=== PATIENT | female | born 1940 | race Caucasian/White ===

== ENCOUNTER 2021-07-07 06:19 | Observation (INO) | payer MEDICARE ==
[2021-06-30 13:52] LABS: BASOPHILS % (AUTO) 0.8 % (0.0-5.0); EOSINOPHILS % (AUTO) 4.4 % (0.0-8.0); MEAN CORPUSCULAR HEMOGLOBIN 29.7 pg (27.0-33.0); MEAN CORPUSCULAR HGB CONC 32.8 g/dL (32.0-36.0); MEAN CORPUSCULAR VOLUME 90.5 fL (79-99); MONOCYTES % (AUTO) 9.9 % (3.0-13.0); NEUTROPHILS % (AUTO) 54.6 % (40.0-77.0); PLATELET COUNT (AUTO) 225 K/uL (130-400); RED BLOOD CELL COUNT(AUTO) 4.31 MIL/uL (4.00-5.50); RED CELL DISTRIBUTION WIDTH 12.9 % (11.0-15.5); WHITE BLOOD COUNT (AUTO) 6.5 K/uL (4.8-10.8)
[2021-06-30 14:00] LABS: CREATININE 0.9 mg/dL (0.5-1.5); POTASSIUM 4.6 mmol/L (3.5-5.1); PROTHROMBIN TIME 10.9 SEC (9.6-11.6)
[2021-06-30 14:01] LABS: PARTIAL THROMBOPLASTIN TIME 27.4 SEC (26.3-35.5)
[2021-07-06 10:01] VITALS: BP 137/65
[2021-07-07] VITALS (27 sets, daily range): BP systolic 98–129; BP diastolic 39–64
[~2021-07-07] VITALS: Ht 165.1 cm; Wt 71.4 kg
[2021-07-07] MEDS: CEFAZOLIN SODIUM 2 GM VIAL IV SCH ×3 (05:00→18:11)
[~2021-07-07 06:19] MED LIST: ALPR0.255 PO; CITA-107 PO; MULT-1367 PO; MV-M1TAB20 PO; NEBI2.5T5 PO; PANT40TA54 PO; ROPIVICAINE 250MG+KETOROLAC 15MG+EPINEPHRINE 0.3+CLONIDINE 80 IV PRN; ROSU40TA21 PO
[2021-07-07] MEDS ORDERED: TRANEXAMIC ACID 1000MG/10ML ONE (07:04)
[2021-07-07] MEDS ORDERED: LACTATED RINGERS 1000ML 1,000 ML IV ONE (07:05)
[2021-07-07] MEDS ORDERED: CEFAZOLIN SODIUM 1 GM VIAL ONE (07:05)
[2021-07-07] MEDS ORDERED: LIDOCAINE PF 100MG/5ML (2%) SYRINGE 5ML ONE (07:22)
[2021-07-07] MEDS ORDERED: PROPOFOL 10 MG/ML 20ML VIAL IV ONE (07:23)
[2021-07-07] MEDS ORDERED: ONDANSETRON 4MG INJ ONE (07:23)
[2021-07-07] MEDS ORDERED: FENTANYL CITRATE PF 50 MCG/1 ML 2ML VIAL ONE (07:24)
[2021-07-07] MEDS ORDERED: ROCURONIUM 10MG/1ML SYR 10 MG/ML ML ONE ×2 (07:24→09:14)
[2021-07-07] MEDS ORDERED: MIDAZOLAM HCL 1 MG/ML 2ML VIAL ONE (07:25)
[2021-07-07] MEDS ORDERED: ROPIVACAINE 0.5% 5MG/ML 30ML IJ ONE (07:43)
[2021-07-07] MEDS ORDERED: DEXAMETHASONE SOD PHOSPHATE 10MG/ML 1ML VIAL ONE (07:44)
[2021-07-07] MEDS ORDERED: GLYCOPYRROLATE 1 MG/5 ML SYRINGE ONE (10:34)
[2021-07-07] MEDS ORDERED: NEOSTIGMINE 5MG/5ML SYR IV ONE (10:35)
[2021-07-07] MEDS ORDERED: 0.9%NACL 1000ML 1,000 ML IV SCH (11:00)
[2021-07-07] MEDS ORDERED: HYDROCODONE/ACETAMINOPHEN 5/325 MG TAB PO PRN (11:00)
[2021-07-07] MEDS ORDERED: HYDROCODONE/ACETAMINOPHEN 10/325 MG TAB PO PRN (11:00)
[2021-07-07] MEDS ORDERED: MORPHINE 4 MG SYG IVP PRN (11:00)
[2021-07-07] MEDS ORDERED: ONDANSETRON 4MG INJ IVP PRN (11:00)
[2021-07-07] MEDS: ACETAMINOPHEN 500 MG TABLET PO SCH ×2 (11:00→18:37)
[2021-07-07] MEDS: TRAMADOL HCL 50 MG TABLET PO SCH ×3 (12:00→23:30)
[2021-07-07] MEDS: CEFAZOLIN SODIUM 1 GM VIAL IVP SCH ×2 (16:58→23:40)
[2021-07-07] MEDS: ALPRAZOLAM 0.25 MG TABLET PO SCH (19:44)
[2021-07-07] MEDS: FAMOTIDINE 20MG TAB PO SCH (19:44)
[2021-07-07] MEDS: ASPIRIN 81 MG EC TAB PO SCH (19:44)
[2021-07-07] MEDS ORDERED: GABA-529 PO (22:42)
[2021-07-08] MEDS: ACETAMINOPHEN 500 MG TABLET PO SCH ×3 (03:02→17:23)
[2021-07-08 03:46] LABS: HEMATOCRIT 31.2 % (36-48); MEAN CORPUSCULAR HEMOGLOBIN 29.5 pg (27.0-33.0); MEAN CORPUSCULAR VOLUME 89.4 fL (79-99); RED BLOOD CELL COUNT(AUTO) 3.49 MIL/uL (4.00-5.50); RED CELL DISTRIBUTION WIDTH 12.7 % (11.0-15.5); WHITE BLOOD COUNT (AUTO) 10.3 K/uL (4.8-10.8)
[2021-07-08 04:01] LABS: CREATININE 0.9 mg/dL (0.5-1.5); POTASSIUM 4.1 mmol/L (3.5-5.1)
[2021-07-08 05:06] VITALS: BP 102/47
[2021-07-08] MEDS: TRAMADOL HCL 50 MG TABLET PO SCH ×3 (05:33→18:46)
[2021-07-08 07:47] VITALS: BP 102/57
[2021-07-08] MEDS ORDERED: BYSTOLIC 2.5 MG PO SCH (09:00)
[2021-07-08] MEDS ORDERED: MULTIVITAMIN TABLET PO SCH (09:00)
[2021-07-08] MEDS ORDERED: PANTOPRAZOLE 40 MG TAB DR PO SCH (09:00)
[2021-07-08] MEDS ORDERED: CITALOPRAM 20 MG TABLET PO SCH (09:00)
[2021-07-08] MEDS ORDERED: POLYETHYLENE GLYCOL 3350 17 GM POWD.PACK PO SCH (09:00)
[2021-07-08] MEDS: FAMOTIDINE 20MG TAB PO SCH (09:13)
[2021-07-08] MEDS: ALPRAZOLAM 0.25 MG TABLET PO SCH (09:13)
[2021-07-08] MEDS: ASPIRIN 81 MG EC TAB PO SCH (09:13)
[2021-07-08 11:12] VITALS: BP 115/53
[2021-07-08 15:49] VITALS: BP 135/46
[2021-07-10] MEDS ORDERED: BISACODYL 10 MG SUPP.RECT RC PRN (11:00)
== END 2021-07-08 19:10 | disposition home health service (06) ==
LOC: DAH 06:19 → DAHIP 06:20 → 4AH 12:15
PROVIDERS: ADMIT Orthopaedic Surgery; ATTEND Orthopaedic Surgery
DX: M17.12 Unilateral primary osteoarthritis, left knee (principal); Z20.822 Contact with and (suspected) exposure to COVID-19; M25.562 Pain in left knee; Z79.82 Long term (current) use of aspirin; Z79.899 Other long term (current) drug therapy; Z98.890 Other specified postprocedural states
CPT/HCPCS: 27447; 36415 ×2; 64447; 64450; 76942; 80048 ×2; 85025; 85027; 85610; 85730; 87635; 87641; 93005; 96374; 96376; 97039 ×3; 97116 ×2; 97161; 97530 ×2; A4215; A4221; A4222; A4223; A4344; A4649 ×5; A4663; A4930; A5120; A6223; A6260; C1776; C9803; G0378 ×30; J0171; J0690 ×3; J0735; J1100; J1885; J2001; J2250; J2405; J2704; J2710; J2795 ×2; J3010; J3490 ×2; J7030; J7120 ×2

== ENCOUNTER 2021-08-11 06:17 | Observation (INO) | payer MEDICARE ==
[2021-08-07 12:45] LABS: BASOPHILS % (AUTO) 0.7 % (0.0-5.0); HEMATOCRIT 37.3 % (36-48); LYMPHOCYTES % (AUTO) 27.7 % (21.0-51.0); MEAN CORPUSCULAR HEMOGLOBIN 29.6 pg (27.0-33.0); MEAN CORPUSCULAR HGB CONC 32.7 g/dL (32.0-36.0); MEAN CORPUSCULAR VOLUME 90.5 fL (79-99); MONOCYTES % (AUTO) 10.2 % (3.0-13.0); PLATELET COUNT (AUTO) 286 K/uL (130-400); RED BLOOD CELL COUNT(AUTO) 4.12 MIL/uL (4.00-5.50); WHITE BLOOD COUNT (AUTO) 7.3 K/uL (4.8-10.8)
[2021-08-07 12:59] LABS: PROTHROMBIN TIME 10.9 SEC (9.6-11.6)
[2021-08-07 13:00] LABS: PARTIAL THROMBOPLASTIN TIME 28.4 SEC (26.3-35.5)
[2021-08-07 13:05] LABS: CREATININE 0.8 mg/dL (0.5-1.5); POTASSIUM 4.4 mmol/L (3.5-5.1)
[2021-08-10 09:59] VITALS: BP 149/74
[2021-08-11] VITALS (22 sets, daily range): BP systolic 116–158; BP diastolic 52–88
[~2021-08-11] VITALS: Ht 165.1 cm; Wt 70.4 kg
[2021-08-11] MEDS: CEFAZOLIN SODIUM 1 GM VIAL IVP SCH ×4 (06:00→20:56)
[~2021-08-11 06:17] MED LIST changes: +AEC81 PO; -ALPR0.255 PO; +ALPR0.5T8 PO; +DICY20TA3 PO; +GABA-529 PO; +LACTATED RINGERS 1000ML 1,000 ML IV SCH; +MELO-106 PO; -MULT-1367 PO; -MV-M1TAB20 PO; +NITR0.4T50 SL; +OMEP20TA2 PO; -ROPIVICAINE 250MG+KETOROLAC 15MG+EPINEPHRINE 0.3+CLONIDINE 80 IV PRN
[2021-08-11] MEDS ORDERED: ACET-2041 PO (07:18)
[2021-08-11] MEDS ORDERED: TRANEXAMIC ACID 1000MG/10ML ONE (07:35)
[2021-08-11] MEDS ORDERED: LIDOCAINE PF 100MG/5ML (2%) SYRINGE 5ML ONE (07:36)
[2021-08-11] MEDS ORDERED: ROPIVACAINE 0.5% 5MG/ML 30ML IJ ONE ×2 (07:36→07:41)
[2021-08-11] MEDS ORDERED: MIDAZOLAM HCL 1 MG/ML 2ML VIAL ONE (07:37)
[2021-08-11] MEDS ORDERED: DEXAMETHASONE SOD PHOSPHATE 10MG/ML 1ML VIAL ONE (07:37)
[2021-08-11] MEDS ORDERED: PROPOFOL 1000 MG/100 ML 100 ML IV ONE (07:40)
[2021-08-11] MEDS ORDERED: 0.9%NACL 10ML VIAL ONE (07:48)
[2021-08-11] MEDS ORDERED: ONDANSETRON 4MG INJ IVP PRN (08:00)
[2021-08-11] MEDS ORDERED: ACETAMINOPHEN 500 MG TABLET PO SCH (08:00)
[2021-08-11] MEDS ORDERED: HYDROCODONE/ACETAMINOPHEN 10/325 MG TAB PO PRN (08:00)
[2021-08-11] MEDS ORDERED: HYDROCODONE/ACETAMINOPHEN 5/325 MG TAB PO PRN (08:00)
[2021-08-11] MEDS ORDERED: MORPHINE 4 MG SYG IVP PRN (08:00)
[2021-08-11] MEDS ORDERED: NITROGLYCERIN 0.4 MG SL TAB SL PRN (08:00)
[2021-08-11] MEDS: DICYCLOMINE HCL 20 MG TAB PO SCH ×2 (09:00→20:56)
[2021-08-11] MEDS: PANTOPRAZOLE 40 MG TAB DR PO SCH (09:00)
[2021-08-11] MEDS: GABAPENTIN 100 MG CAPSULE PO SCH ×2 (09:00→20:55)
[2021-08-11] MEDS: FAMOTIDINE 20MG TAB PO SCH ×2 (09:00→20:56)
[2021-08-11] MEDS: ASPIRIN 81 MG EC TAB PO SCH ×2 (09:00→20:55)
[2021-08-11] MEDS: CITALOPRAM 20 MG TABLET PO SCH (09:00)
[2021-08-11] MEDS: POLYETHYLENE GLYCOL 3350 17 GM POWD.PACK PO SCH (09:00)
[2021-08-11] MEDS: ALPRAZOLAM 0.5 MG TABLET PO SCH ×2 (09:00→20:55)
[2021-08-11] MEDS ORDERED: EPHEDRINE SULFATE 50 MG/ML AMPULE ONE (09:01)
[2021-08-11] MEDS ORDERED: ONDANSETRON 4MG INJ ONE (09:54)
[2021-08-11] MEDS: 0.9%NACL 1000ML 1,000 ML IV SCH ×3 (11:25→22:39)
[2021-08-11] MEDS: TRAMADOL HCL 50 MG TABLET PO SCH ×2 (12:12→18:13)
[2021-08-11] MEDS ORDERED: NEBIVOLOL HCL 2.5 MG PO SCH (21:00)
[2021-08-11] MEDS ORDERED: PHARMACY COMMUNICATION MISC SCH (21:00)
[2021-08-11] MEDS: ACETAMINOPHEN 500 MG TABLET PO SCH (21:06)
[2021-08-12] MEDS: TRAMADOL HCL 50 MG TABLET PO SCH ×3 (01:01→12:22)
[2021-08-12] MEDS: ACETAMINOPHEN 500 MG TABLET PO SCH ×3 (03:44→16:39)
[2021-08-12 04:32] VITALS: BP 117/61
[2021-08-12 05:56] LABS: HEMATOCRIT 28.4 % (36-48); MEAN CORPUSCULAR HEMOGLOBIN 28.8 pg (27.0-33.0); MEAN CORPUSCULAR HGB CONC 32.4 g/dL (32.0-36.0); MEAN CORPUSCULAR VOLUME 88.8 fL (79-99); RED BLOOD CELL COUNT(AUTO) 3.2 MIL/uL (4.00-5.50); RED CELL DISTRIBUTION WIDTH 12.7 % (11.0-15.5); WHITE BLOOD COUNT (AUTO) 11.9 K/uL (4.8-10.8)
[2021-08-12 06:06] LABS: CREATININE 0.7 mg/dL (0.5-1.5); POTASSIUM 3.9 mmol/L (3.5-5.1)
[2021-08-12 07:59] VITALS: BP 104/59
[2021-08-12] MEDS: ASPIRIN 81 MG EC TAB PO SCH (08:41)
[2021-08-12] MEDS: FAMOTIDINE 20MG TAB PO SCH (08:41)
[2021-08-12] MEDS: DICYCLOMINE HCL 20 MG TAB PO SCH (08:41)
[2021-08-12] MEDS: POLYETHYLENE GLYCOL 3350 17 GM POWD.PACK PO SCH (08:41)
[2021-08-12] MEDS: GABAPENTIN 100 MG CAPSULE PO SCH (08:41)
[2021-08-12] MEDS: CITALOPRAM 20 MG TABLET PO SCH (08:42)
[2021-08-12] MEDS: ALPRAZOLAM 0.5 MG TABLET PO SCH (08:42)
[2021-08-12] MEDS: PANTOPRAZOLE 40 MG TAB DR PO SCH (09:00)
[2021-08-12 11:12] VITALS: BP 134/58
[2021-08-14] MEDS ORDERED: BISACODYL 10 MG SUPP.RECT RC PRN (08:00)
== END 2021-08-12 18:45 | disposition home or self-care (01) ==
LOC: DAH 06:17 → DAHIP 06:18 → DAH 06:18 → 3AH 11:15
PROVIDERS: ADMIT Orthopaedic Surgery; ATTEND Orthopaedic Surgery
DX: M17.11 Unilateral primary osteoarthritis, right knee (principal); Z20.822 Contact with and (suspected) exposure to COVID-19; F41.9 Anxiety disorder, unspecified; F32.9 Major depressive disorder, single episode, unspecified; E78.00 Pure hypercholesterolemia, unspecified; Z98.890 Other specified postprocedural states; Z79.01 Long term (current) use of anticoagulants; Z96.652 Presence of left artificial knee joint; Z79.899 Other long term (current) drug therapy
CPT/HCPCS: 27447; S2900; 36415; 80048; 85025; 85027; 85610; 85730; 87635; 88305; 88311; 93005; 96374; 96376; 97039; A4344; C9803; G0378; J0690; J1100; J2001; J2250; J2405; J2704; J2795; J3490; J7030; J7120